=== PATIENT | female | born 1960 | race Caucasian/White ===

== ENCOUNTER 2018-04-21 09:32 | Emergency (ER) | payer OTHER ==
[~2018-04-21] VITALS: Ht 157.5 cm; Wt 75.7 kg
[~2018-04-21 09:32] MED LIST: KETO10TA2 PO; ORPH100T PO; PAXIL20 MG PO
[2018-04-21] MEDS ORDERED: CLONAZEPAM2 M1 (09:52)
== END 2018-04-21 20:09 | disposition home or self-care (01) ==
LOC: ER 09:32
DX: J20.9 Acute bronchitis, unspecified (principal); J32.8 Other chronic sinusitis

== ENCOUNTER 2018-09-09 10:45 | Emergency (ER) | payer OTHER ==
[~2018-09-09] VITALS: Ht 162.6 cm; Wt 77.6 kg
[~2018-09-09 10:45] MED LIST changes: +CLONAZEPAM2 M1
[2018-09-09] MEDS ORDERED: EFFEXOR XR75 MG PO (10:56)
== END 2018-09-09 15:55 | disposition home or self-care (01) ==
LOC: ER 10:45
DX: M25.562 Pain in left knee (principal)

== ENCOUNTER → 2018-09-15 | Emergency (ER) | payer OTHER ==
[~2018-09-15] VITALS: Ht 144.8 cm; Wt 74.8 kg
[~2018-09-15] MED LIST changes: +EFFEXOR XR75 MG PO
== END | disposition home or self-care (01) ==
LOC: ER 13:29
DX: G89.29 Other chronic pain (principal); M25.562 Pain in left knee

== ENCOUNTER 2022-09-09 06:21 | Day surgery (SDC) | payer OTHER ==
[~2022-09-09] VITALS: Ht 162.6 cm; Wt 68.0 kg
== END 2022-09-09 13:30 | disposition home or self-care (01) ==
LOC: CIR.AMB 06:21
PROVIDERS: ATTEND Specialist
DX: K43.2 Incisional hernia without obstruction or gangrene (principal); Z20.822 Contact with and (suspected) exposure to COVID-19; Z71.6 Tobacco abuse counseling; F17.210 Nicotine dependence, cigarettes, uncomplicated